=== PATIENT | female | born 1945 | race Caucasian/White ===

== ENCOUNTER → 2017-04-25 | Outpatient (CLI) | payer OTHER | LOC: RAD 01:42 | DX: Z12.31 Encounter for screening mammogram for malignant neoplasm of breast (principal) ==

== ENCOUNTER → 2019-11-22 | Outpatient (CLI) | payer OTHER | LOC: ULTRA 10:05 | DX: K76.0 Fatty (change of) liver, not elsewhere classified (principal); R94.5 Abnormal results of liver function studies ==

== ENCOUNTER → 2021-01-01 | Outpatient (CLI) | payer OTHER | LOC: CAT 15:07 | PROVIDERS: ATTEND Family Medicine | DX: I67.89 Other cerebrovascular disease (principal); I10 Essential (primary) hypertension ==

== ENCOUNTER → 2021-02-15 | Outpatient (CLI) | payer OTHER | LOC: MRI 12:33 | PROVIDERS: ATTEND Nurse Practitioner | DX: M47.22 Other spondylosis with radiculopathy, cervical region (principal); R42 Dizziness and giddiness; M54.2 Cervicalgia ==